=== PATIENT | male | born 1955 | race Caucasian/White ===

== ENCOUNTER 2018-04-09 06:20 | Emergency (ER) | payer OTHER ==
[~2018-04-09] VITALS: Ht 175.3 cm; Wt 81.2 kg
[2018-04-09] MEDS ORDERED: CRESTOR10 MG (06:37)
[2018-04-09] MEDS ORDERED: SUSTIVA200 MG (06:38)
== END 2018-04-09 08:25 | disposition home or self-care (01) ==
LOC: ER 06:20
DX: T15.12XA Foreign body in conjunctival sac, left eye, initial encounter (principal)

== ENCOUNTER → 2021-02-02 | Emergency (ER) | payer OTHER ==
[~2021-02-02] VITALS: Ht 175.3 cm; Wt 72.6 kg
[~2021-02-02] MED LIST: CRESTOR10 MG; SUSTIVA200 MG
== END ==
LOC: ER 06:23
DX: T15.01XA Foreign body in cornea, right eye, initial encounter (principal); H16.8 Other keratitis; X58.XXXA Exposure to other specified factors, initial encounter; Y93.89 Activity, other specified; Y92.89 Other specified places as the place of occurrence of the external cause; Y99.8 Other external cause status

== ENCOUNTER 2021-11-04 08:46 | Emergency (ER) | payer OTHER ==
[~2021-11-04] VITALS: Ht 175.3 cm; Wt 77.1 kg
[2021-11-04] MEDS ORDERED: SUSTIVA50 MG PO (09:14)
== END 2021-11-04 09:51 | disposition home or self-care (01) ==
LOC: ER 08:46
DX: L30.8 Other specified dermatitis (principal); R21 Rash and other nonspecific skin eruption

== ENCOUNTER 2022-10-10 05:58 | Emergency (ER) | payer OTHER ==
[~2022-10-10] VITALS: Ht 175.3 cm; Wt 74.8 kg
[~2022-10-10 05:58] MED LIST changes: +SUSTIVA50 MG PO
[2022-10-10] MEDS ORDERED: DAILY-VITE TA400 MC1 (06:11)
[2022-10-10] MEDS ORDERED: OMEGA-31000 MG (06:11)
[2022-10-10] MEDS ORDERED: DOVATO 50-3001 EACH (06:12)
== END 2022-10-10 09:01 | disposition home or self-care (01) ==
LOC: ER 05:58
DX: T78.40XA Allergy, unspecified, initial encounter (principal); I10 Essential (primary) hypertension

== ENCOUNTER → 2022-10-21 | Emergency (ER) | payer OTHER ==
[~2022-10-21] VITALS: Ht 172.7 cm; Wt 76.7 kg
[~2022-10-21] MED LIST changes: +DAILY-VITE TA400 MC1; +DOVATO 50-3001 EACH; +OMEGA-31000 MG
== END | disposition home or self-care (01) ==
LOC: ER 08:03
DX: R33.9 Retention of urine, unspecified (principal)

== ENCOUNTER 2022-10-30 03:28 | Emergency (ER) | payer OTHER ==
[~2022-10-30] VITALS: Ht 175.3 cm; Wt 72.6 kg
== END 2022-10-30 05:19 | disposition home or self-care (01) ==
LOC: ER 03:28
DX: T83.028A Displacement of other urinary catheter, initial encounter (principal)

== ENCOUNTER → 2022-11-09 | Emergency (ER) | payer OTHER | END | disposition left against medical advice (07) | LOC: ER 08:02 | DX: Z53.21 Procedure and treatment not carried out due to patient leaving prior to being seen by health care provider (principal) ==

== ENCOUNTER → 2022-11-24 | Emergency (ER) | payer OTHER ==
[~2022-11-24] VITALS: Ht 175.3 cm; Wt 72.6 kg
== END | disposition home or self-care (01) ==
LOC: ER 08:08
DX: N47.2 Paraphimosis (principal); Z21 Asymptomatic human immunodeficiency virus [HIV] infection status

== ENCOUNTER 2022-12-17 19:14 | Emergency (ER) | payer OTHER ==
[~2022-12-17] VITALS: Ht 175.3 cm; Wt 72.6 kg
[2022-12-17] MEDS ORDERED: TAMS0.4C PO (19:24)
[2022-12-17] MEDS ORDERED: FOLIC ACID0.8 M1 PO (19:24)
[2022-12-17] MEDS ORDERED: LOVAZA1 GM PO (19:25)
== END 2022-12-17 22:32 | disposition home or self-care (01) ==
LOC: ER 19:14
DX: N39.0 Urinary tract infection, site not specified (principal); T83.091A Other mechanical complication of indwelling urethral catheter, initial encounter; R30.0 Dysuria; N40.0 Benign prostatic hyperplasia without lower urinary tract symptoms; B20 Human immunodeficiency virus [HIV] disease

== ENCOUNTER 2023-03-23 06:10 | Emergency (ER) | payer OTHER ==
[~2023-03-23] VITALS: Ht 175.3 cm; Wt 72.6 kg
[~2023-03-23 06:10] MED LIST changes: +FOLIC ACID0.8 M1 PO; +LOVAZA1 GM PO; +TAMS0.4C PO
[2023-03-23] MEDS ORDERED: NYSTATIN100000 UNI PO (06:39)
[2023-03-23] MEDS ORDERED: FLUCONAZOLE150 MG PO (06:39)
== END 2023-03-23 06:43 | disposition home or self-care (01) ==
LOC: ER 06:10
DX: B37.0 Candidal stomatitis (principal); B20 Human immunodeficiency virus [HIV] disease

== ENCOUNTER 2024-06-26 06:06 | Emergency (ER) | payer OTHER ==
[~2024-06-26] VITALS: Ht 175.3 cm; Wt 72.6 kg
[~2024-06-26 06:06] MED LIST changes: +FLUCONAZOLE150 MG PO; +NYSTATIN100000 UNI PO
[2024-06-26] MEDS ORDERED: DOVATO 50-3001 EACH PO (06:19)
[2024-06-26] MEDS ORDERED: ROSUVASTATIN CA10 MG PO (06:20)
[2024-06-26] MEDS ORDERED: VITAMIN C500 M1 PO (06:20)
[2024-06-26] MEDS ORDERED: LISINOPRIL20 MG PO (06:21)
[2024-06-26] MEDS ORDERED: MULTI VITAMIN1 EACH (06:21)
[2024-06-26] MEDS ORDERED: DUTASTERIDE-TA1 EACH (06:21)
[2024-06-26] MEDS ORDERED: TAMS0.4C PO (06:22)
[2024-06-26] MEDS ORDERED: OMEGA-3 ACID ETH1 GM PO (06:22)
[2024-06-26] MEDS ORDERED: DIALYVITE 800-1 EACH (06:22)
[2024-06-26] MEDS ORDERED: CLINDAMYCIN PHOSPHATE 150 MG/ML (600mg) IM STA (07:26)
[2024-06-26] MEDS ORDERED: CLINDAMYCIN PHOSPHATE 150 MG/ML (300mg) ONE (07:31)
== END 2024-06-26 07:45 | disposition home or self-care (01) ==
LOC: ER 06:08
DX: L03.114 Cellulitis of left upper limb (principal)
CPT/HCPCS: 96372; 99283; J3490